=== PATIENT | male | born 1955 | race African-American/Black ===

== ENCOUNTER 2017-08-26 09:09 | Inpatient (IN) ==
[2017-08-26] MEDS ORDERED: SODIUM CHLORIDE 0.9% 1,000 ML IV STA (09:37)
[2017-08-26] MEDS ORDERED: PANTOPRAZOLE 40 MG VIAL IV STA (09:44)
[2017-08-26] MEDS ORDERED: ONDANSETRON 4 MG/2 ML VIAL IV STA (09:44)
[2017-08-26] MEDS ORDERED: PANTOPRAZOLE 40 MG VIAL IV ONE (09:46)
[2017-08-26] MEDS ORDERED: ONDANSETRON 4 MG/2 ML VIAL ONE (09:47)
[2017-08-26 10:25] LABS: Basophils % 0.3 % (0.0-0.8); Hematocrit 36.4 VOL% (42.0-52.0); Hemoglobin 12.2 GM/DL (14.0-18.0); Immature Granulocytes % 0.3 %; Immature Granulocytes Absolute 0.04 #; Lymphocytes # 1.5 10*3/uL (1.4-4.0); Lymphocytes % 12.6 % (21.2-54.2); Mean Corpuscular HGB Conc 33.5 GM/DL (32-36); Mean Corpuscular Hemoglobin 31 PG (27-34); Mean Corpuscular Volume 93.1 FL (87-102); Monocytes # 0.3 10*3/uL (0.11-0.8); Monocytes % 2.4 % (1.7-12.7); Neutrophils % 84.4 % (38.7-73.9); Red Blood Count 3.91 MC/CUMM (3.8-5.5); White Blood Count 11.9 T/CUMM (4-12)
[2017-08-26 10:31] LABS: Platelet Count 84 T/CUMM (130-400)
[2017-08-26 10:45] LABS: INR 1.3; PT Patient Result 13.7 SECS
[2017-08-26 10:48] LABS: Hypochromasia 1+; Lymphocytes 11 % (20-55); Microcytosis 1+; Segmented Neutrophils 88 % (50-85); Total Cells Counted 100
[2017-08-26 10:50] LABS: Platelet Estimate Decreased
[2017-08-26 10:52] LABS: Albumin 2.8 G/DL (3.4-5.0); Bilirubin,Total 2.5 MG/DL (0.2-1.0); Calcium 8.2 MG/DL (8.5-10.1); Magnesium 1.5 MG/DL (1.8-2.4); Osmolality,Calculated 287.3 MOS/KG (273-304); Potassium 3.8 MMOL/L (3.5-5.1); Total Protein 7.8 G/DL (6.4-8.3)
[2017-08-26] MEDS ORDERED: THIAMINE INJ 100 MG, FOLIC ACID INJ 1 MG, MAGNESIUM SULF INJ 2 GM, MULTIVITAMIN INJ 10 ... IV ONE (11:04)
[2017-08-26] MEDS ORDERED: LORazepam 2 MG/1 ML VIAL IV PRN (12:22)
[2017-08-26] MEDS ORDERED: ONDANSETRON 4 MG/2 ML VIAL IV PRN (14:15)
[2017-08-26] MEDS: SODIUM CHLORIDE 0.9% 1,000 ML IV SCH (14:23)
[2017-08-26] MEDS: OCTREOTIDE 500 MCG in SODIUM CHLORIDE 0.9% 100 ML IV SCH (15:24)
[2017-08-26 15:47] LABS: Hematocrit 32.4 VOL% (42.0-52.0); Hemoglobin 11.1 GM/DL (14.0-18.0)
[2017-08-26] MEDS ORDERED: MAGNESIUM SULF RIDER 4 GM in PREMIX 1 EACH IV STA (16:22)
[2017-08-26] MEDS ORDERED: MAGNESIUM SULF RIDER 50 ML IV ONE ×2 (16:32→16:39)
[2017-08-26 18:49] LABS: Apearance,Urine Slightly Hazy (Clear); Bacteria,Urine Many /HPF (Few); Bilirubin,Urine Negative (Negative); Blood, Urine Small mg/dL (Negative); Glucose,Urine (UA) Negative (Negative); Ketones,Urine Negative (Negative); Mucus,Urine Many /LPF (Occasional); Nitrite,Urine Negative (Negative); Protein,Urine Negative; Urine Color Yellow (Yellow); Urine Specific Gravity 1.019 (1.001-1.035); Urine Urobilinogen < 2.0 EU/DL (0.2-1.0); WBC,Urine 20 /HPF (0-6)
[2017-08-26 19:33] LABS: Barbiturates Screen,Urine Negative (Negative); Benzodiazepines Screen,Urine Negative (Negative); Cannabinoid Screen,Urine Negative (Negative); Opiate Screen,Urine Negative (Negative); Phencyclidine Screen,Urine Negative (Negative)
[2017-08-26 20:54] LABS: Hematocrit 30.7 VOL% (42.0-52.0); Hemoglobin 10.3 GM/DL (14.0-18.0)
[2017-08-26] MEDS: PANTOPRAZOLE 40 MG VIAL IV SCH (21:28)
[2017-08-27] MEDS: OCTREOTIDE 500 MCG in SODIUM CHLORIDE 0.9% 100 ML IV SCH ×3 (01:24→22:43)
[2017-08-27] MEDS: SODIUM CHLORIDE 0.9% 1,000 ML IV SCH ×3 (01:48→17:07)
[2017-08-27 05:31] LABS: Basophils % 0.3 % (0.0-0.8); Eosinophils % 0.2 % (0.00-10.9); Hematocrit 24.2 VOL% (42.0-52.0); Hemoglobin 8.6 GM/DL (14.0-18.0); Immature Granulocytes % 0.4 %; Immature Granulocytes Absolute 0.05 #; Lymphocytes # 2.1 10*3/uL (1.4-4.0); Lymphocytes % 18.1 % (21.2-54.2); Mean Corpuscular HGB Conc 35.5 GM/DL (32-36); Mean Corpuscular Hemoglobin 32 PG (27-34); Mean Corpuscular Volume 90.6 FL (87-102); Mean Platelet Volume 11.2 FL (9.6-12.0); Monocytes # 0.7 10*3/uL (0.11-0.8); Monocytes % 6.1 % (1.7-12.7); Neutrophils # 8.7 10*3/uL (1.4-7.4); Neutrophils % 74.9 % (38.7-73.9); Red Blood Count 2.67 MC/CUMM (3.8-5.5); Red Cell Distribution Width 13.9 % (9.3-17.3); White Blood Count 11.6 T/CUMM (4-12)
[2017-08-27 05:38] LABS: Platelet Count 58 T/CUMM (130-400)
[2017-08-27 05:52] LABS: Band Neutrophils 2 % (0-10); Hypochromasia 1+; Lymphocytes 19 % (20-55); Platelet Estimate Decreased; Segmented Neutrophils 77 % (50-85); Total Cells Counted 100
[2017-08-27 05:53] LABS: Microcytosis 1+
[2017-08-27 06:04] LABS: Albumin 2.4 G/DL (3.4-5.0); Bilirubin,Direct 0.68 MG/DL (0.0-0.20); Bilirubin,Indirect 1.6 MG/DL (0.0-1.0); Bilirubin,Total 2.3 MG/DL (0.2-1.0); Calcium 7.9 MG/DL (8.5-10.1); Osmolality,Calculated 285.3 MOS/KG (273-304); Potassium 4.1 MMOL/L (3.5-5.1); Thyroid Stimulating Hormone 0.102 uIU/ml (0.358-3.74); Total Protein 5.9 G/DL (6.4-8.3)
[2017-08-27] MEDS: FOLIC ACID 1 MG TABLET PO SCH (08:23)
[2017-08-27] MEDS: MULTIVITAMIN (CENTRUM) TABLET PO SCH (08:23)
[2017-08-27] MEDS: PANTOPRAZOLE 40 MG VIAL IV SCH ×2 (08:23→22:04)
[2017-08-27] MEDS: THIAMINE 100 MG TABLET PO SCH (08:24)
[2017-08-27] MEDS: cefTRIAXone 1,000 MG in SYRINGE 1 EACH IV SCH (09:45)
[2017-08-27] MEDS ORDERED: SODIUM CHLORIDE 0.9% 1,000 ML IV PRN (15:46)
[2017-08-28] MEDS: SODIUM CHLORIDE 0.9% 1,000 ML IV SCH ×2 (02:05→22:38)
[2017-08-28 07:12] LABS: Basophils % 0.7 % (0.0-0.8); Eosinophils # 0.1 10*3/uL (0.0-0.87); Eosinophils % 2.9 % (0.00-10.9); Hematocrit 25.4 VOL% (42.0-52.0); Hemoglobin 8.6 GM/DL (14.0-18.0); Immature Granulocytes % 0.5 %; Immature Granulocytes Absolute 0.02 #; Lymphocytes # 0.9 10*3/uL (1.4-4.0); Lymphocytes % 19.9 % (21.2-54.2); Mean Corpuscular HGB Conc 33.9 GM/DL (32-36); Mean Corpuscular Hemoglobin 31 PG (27-34); Mean Corpuscular Volume 92.7 FL (87-102); Mean Platelet Volume 11.3 FL (9.6-12.0); Monocytes # 0.2 10*3/uL (0.11-0.8); Monocytes % 4.8 % (1.7-12.7); Neutrophils # 3.2 10*3/uL (1.4-7.4); Neutrophils % 71.2 % (38.7-73.9); Red Blood Count 2.74 MC/CUMM (3.8-5.5); Red Cell Distribution Width 14.4 % (9.3-17.3)
[2017-08-28 07:16] LABS: White Blood Count 4.4 T/CUMM (4-12)
[2017-08-28 07:17] LABS: Platelet Count 43 T/CUMM (130-400)
[2017-08-28 07:33] LABS: Calcium 7.5 MG/DL (8.5-10.1); Osmolality,Calculated 281.3 MOS/KG (273-304); Potassium 3.8 MMOL/L (3.5-5.1)
[2017-08-28 07:52] LABS: Eosinophils 1 % (0-10); Giant Platelets Few; Hypochromasia 1+; Lymphocytes 11 % (20-55); Microcytosis Slight; Ovalocytes Slight; Platelet Estimate Decreased; Segmented Neutrophils 86 % (50-85); Total Cells Counted 100
[2017-08-28] MEDS: cefTRIAXone 1,000 MG in SYRINGE 1 EACH IV SCH (08:28)
[2017-08-28] MEDS: PANTOPRAZOLE 40 MG VIAL IV SCH ×2 (08:32→20:34)
[2017-08-28] MEDS ORDERED: PROPOFOL 200 MG/20 ML VIAL IV ONE (10:45)
[2017-08-28] MEDS ORDERED: LIDOCAINE 2% 5 ML VIAL ONE (10:45)
[2017-08-28] MEDS: OCTREOTIDE 500 MCG in SODIUM CHLORIDE 0.9% 100 ML IV SCH (11:56)
[2017-08-28] MEDS: MULTIVITAMIN (CENTRUM) TABLET PO SCH (11:58)
[2017-08-28] MEDS: FOLIC ACID 1 MG TABLET PO SCH (11:58)
[2017-08-28] MEDS: THIAMINE 100 MG TABLET PO SCH (12:01)
[2017-08-29] MEDS: SODIUM CHLORIDE 0.9% 1,000 ML IV SCH (05:15)
[2017-08-29] MEDS: FOLIC ACID 1 MG TABLET PO SCH (09:58)
[2017-08-29] MEDS: MULTIVITAMIN (CENTRUM) TABLET PO SCH (09:58)
[2017-08-29] MEDS: PANTOPRAZOLE 40 MG VIAL IV SCH (09:58)
[2017-08-29] MEDS: THIAMINE 100 MG TABLET PO SCH (09:58)
[2017-08-29] MEDS: cefTRIAXone 1,000 MG in SYRINGE 1 EACH IV SCH (09:59)
[2017-08-29] MEDS ORDERED: MAGNESIUM SULF RIDER 2 GM in PREMIX 1 EACH IV ONE (11:00)
[2017-08-29 11:50] VITALS: BP 109/61
== END 2017-08-29 14:10 | disposition home or self-care (01) | DRG 392 ==
LOC: N.ED 09:09 → N.EDINP 12:12 → N.2E 17:49
PROVIDERS: ADMIT Internal Medicine; ATTEND Internal Medicine

== ENCOUNTER 2017-09-15 22:01 | Inpatient (IN) ==
[2017-09-15] MEDS ORDERED: ONDANSETRON 4 MG/2 ML VIAL IV STA (23:19)
[2017-09-15] MEDS ORDERED: SODIUM CHLORIDE 0.9% 1,000 ML IV STA (23:19)
[2017-09-15] MEDS ORDERED: PANTOPRAZOLE 40 MG VIAL IV STA (23:19)
[2017-09-15] MEDS ORDERED: ONDANSETRON 4 MG/2 ML VIAL ONE (23:31)
[2017-09-15] MEDS ORDERED: PANTOPRAZOLE 40 MG VIAL IV ONE (23:31)
[2017-09-15 23:45] LABS: Basophils % 0.4 % (0.0-0.8); Eosinophils % 0.1 % (0.00-10.9); Hematocrit 28.5 VOL% (42.0-52.0); Immature Granulocytes % 0.4 %; Immature Granulocytes Absolute 0.04 #; Lymphocytes # 2.9 10*3/uL (1.4-4.0); Lymphocytes % 27.3 % (21.2-54.2); Mean Corpuscular HGB Conc 31.6 GM/DL (32-36); Mean Corpuscular Hemoglobin 30 PG (27-34); Mean Corpuscular Volume 94.7 FL (87-102); Mean Platelet Volume 11.5 FL (9.6-12.0); Monocytes # 0.8 10*3/uL (0.11-0.8); Monocytes % 7.7 % (1.7-12.7); Neutrophils # 6.9 10*3/uL (1.4-7.4); Neutrophils % 64.1 % (38.7-73.9); Platelet Count 97 T/CUMM (130-400); Red Blood Count 3.01 MC/CUMM (3.8-5.5); Red Cell Distribution Width 14.2 % (9.3-17.3); White Blood Count 10.7 T/CUMM (4-12)
[2017-09-15 23:51] LABS: INR 1.2; PT Patient Result 12.8 SECS
[2017-09-16 00:08] LABS: Alanine Aminotransferase 48 U/L (16-61); Albumin 2.9 G/DL (3.4-5.0); Alkaline Phosphatase 78 U/L (45-117); Aspartate Amino Transferase 109 U/L (0-37); Blood Urea Nitrogen 36 MG/DL (7-18); Calcium 8.7 MG/DL (8.5-10.1); Glucose 105 MG/DL (74-106); Magnesium 1.5 MG/DL (1.8-2.4); Osmolality,Calculated 293.8 MOS/KG (273-304); Potassium 3.7 MMOL/L (3.5-5.1); Sodium 144 MMOL/L (136-145); Total Protein 7.3 G/DL (6.4-8.3); Troponin I Only 0.021 NG/ML (0.00-0.045)
[2017-09-16 00:23] LABS: Ammonia 99 UMOL/L (11-32)
[2017-09-16 00:27] LABS: Band Neutrophils 1 % (0-10); Lymphocytes 19 % (20-55); Segmented Neutrophils 76 % (50-85); Total Cells Counted 100
[2017-09-16 00:28] LABS: Anisocytosis 1+
[2017-09-16 00:29] LABS: Hypochromasia Slight; Platelet Estimate Decreased
[2017-09-16] MEDS ORDERED: MAGNESIUM SULF RIDER 2 GM in PREMIX 1 EACH IV STA (00:30)
[2017-09-16] MEDS ORDERED: MAGNESIUM SULF RIDER 50 ML IV ONE (00:50)
[2017-09-16] MEDS ORDERED: OCTREOTIDE 100 MCG/ML SYRINGE IV ONE (00:51)
[2017-09-16] MEDS ORDERED: ONDANSETRON 4 MG/2 ML VIAL IV PRN (01:56)
[2017-09-16] MEDS ORDERED: OCTREOTIDE 100 MCG/ML SYRINGE ONE (01:56)
[2017-09-16] MEDS ORDERED: ONDANSETRON 4 MG/2 ML VIAL ONE (02:15)
[2017-09-16] MEDS: OCTREOTIDE 500 MCG in SODIUM CHLORIDE 0.9% 100 ML IV SCH ×2 (02:22→12:27)
[2017-09-16] MEDS: SODIUM CHLORIDE 0.9% 1,000 ML IV SCH ×2 (02:22→09:41)
[2017-09-16 07:18] LABS: Basophils % 0.1 % (0.0-0.8); Eosinophils % 0.1 % (0.00-10.9); Hematocrit 19.9 VOL% (42.0-52.0); Immature Granulocytes % 0.4 %; Immature Granulocytes Absolute 0.03 #; Lymphocytes # 2.3 10*3/uL (1.4-4.0); Lymphocytes % 30.8 % (21.2-54.2); Mean Corpuscular HGB Conc 33.2 GM/DL (32-36); Mean Corpuscular Hemoglobin 30 PG (27-34); Mean Corpuscular Volume 91.3 FL (87-102); Mean Platelet Volume 11.3 FL (9.6-12.0); Monocytes # 0.6 10*3/uL (0.11-0.8); Monocytes % 7.9 % (1.7-12.7); Neutrophils # 4.5 10*3/uL (1.4-7.4); Neutrophils % 60.7 % (38.7-73.9); Red Cell Distribution Width 14.2 % (9.3-17.3)
[2017-09-16 07:33] LABS: Hemoglobin 6.6 GM/DL (14.0-18.0); Platelet Count 83 T/CUMM (130-400); Red Blood Count 2.18 MC/CUMM (3.8-5.5); White Blood Count 7.4 T/CUMM (4-12)
[2017-09-16 07:39] LABS: Calcium 7.4 MG/DL (8.5-10.1); Osmolality,Calculated 298.4 MOS/KG (273-304); Potassium 4.2 MMOL/L (3.5-5.1)
[2017-09-16 07:52] LABS: Giant Platelets Few; Hypochromasia 1+; Ovalocytes Slight; Platelet Estimate Decreased
[2017-09-16 07:53] LABS: Microcytosis Slight
[2017-09-16] MEDS ORDERED: SODIUM CHLORIDE 0.9% 1,000 ML IV PRN ×2 (08:40→08:44)
[2017-09-16] MEDS: PANTOPRAZOLE 40 MG VIAL IV SCH ×2 (09:41→20:39)
[2017-09-16 13:17] LABS: Hematocrit 18.8 VOL% (42.0-52.0)
[2017-09-16] MEDS ORDERED: THIAMINE 200 MG/2 ML VIAL IV SCH (15:00)
[2017-09-16] MEDS: THIAMINE 200 MG/2 ML VIAL IV SCH (20:38)
[2017-09-17] MEDS: SODIUM CHLORIDE 0.9% 1,000 ML IV SCH ×3 (00:36→14:15)
[2017-09-17 05:42] LABS: Basophils % 0.2 % (0.0-0.8); Eosinophils # 0.1 10*3/uL (0.0-0.87); Hematocrit 24.6 VOL% (42.0-52.0); Hemoglobin 8.4 GM/DL (14.0-18.0); Immature Granulocytes % 0.4 %; Immature Granulocytes Absolute 0.02 #; Mean Corpuscular HGB Conc 34.1 GM/DL (32-36); Mean Corpuscular Hemoglobin 30 PG (27-34); Mean Corpuscular Volume 88.5 FL (87-102); Mean Platelet Volume 10.8 FL (9.6-12.0); Monocytes # 0.3 10*3/uL (0.11-0.8); Monocytes % 5.7 % (1.7-12.7); Neutrophils # 4.2 10*3/uL (1.4-7.4); Neutrophils % 73.7 % (38.7-73.9); Platelet Count 65 T/CUMM (130-400); Red Blood Count 2.78 MC/CUMM (3.8-5.5); Red Cell Distribution Width 15.5 % (9.3-17.3); White Blood Count 5.6 T/CUMM (4-12)
[2017-09-17 06:05] LABS: Hypochromasia 1+; Lymphocytes 12 % (20-55); Microcytosis Slight; Ovalocytes Slight; Platelet Estimate Decreased; Segmented Neutrophils 85 % (50-85); Total Cells Counted 100
[2017-09-17 06:19] LABS: Albumin 2.2 G/DL (3.4-5.0); Bilirubin,Total 2.4 MG/DL (0.2-1.0); Calcium 7.3 MG/DL (8.5-10.1); Magnesium 1.7 MG/DL (1.8-2.4); Potassium 3.4 MMOL/L (3.5-5.1); Total Protein 5.8 G/DL (6.4-8.3)
[2017-09-17] MEDS: THIAMINE 200 MG/2 ML VIAL IV SCH (08:45)
[2017-09-17] MEDS: PANTOPRAZOLE 40 MG VIAL IV SCH (08:45)
[2017-09-17] MEDS ORDERED: PROPRANOLOL 10 MG TABLET PO SCH (11:30)
[2017-09-17] MEDS ORDERED: PROPOFOL 200 MG/20 ML VIAL IV ONE (12:05)
[2017-09-17] MEDS ORDERED: LIDOCAINE 2% 5 ML VIAL ONE (12:05)
[2017-09-17 15:41] VITALS: BP 99/59
== END 2017-09-17 17:05 | disposition home or self-care (01) | DRG 442 ==
LOC: N.ED 22:01 → SUATTDRO 09-16 00:55 → N.EDINP 09-16 00:55 → N.4E 09-16 03:20